=== PATIENT | male | born 1950 | race Caucasian/White ===

== ENCOUNTER 2017-03-21 12:14 | Day surgery (SDC) | payer MEDICARE, OTHER ==
--- NOTE | 2017-03-21 08:21 | SURGERY HX AND PHYSICAL(T) ---
Surgical History & Physical - PMH/PSH/Social Hx Does the pt have a hx of MRSA?: No Cardiovascular: Hypertension Eyes Ears Nose Throat (EENT): Tonsil/Adenoidectomy Smoking Status: Never smoker Does the pt drink ETOH?: Yes Frequency: Occasional Does the pt have substance abuse?: No - Home Meds and Allergies Home Medications: Aspirin [Aspir 81] 81 mg PO 06/05/13 Cyclobenzaprine [Flexeril] 10 mg PO TID PRN 06/05/13 Felodipine [Felodipine ER] 5 mg PO 06/05/13 Losartan [Cozaar] 50 mg PO DAILY 06/05/13 Metoprolol Tartrate 100 mg PO 06/05/13 Simvastatin 20 mg PO 06/05/13 Allergies/Adverse Reactions: Allergies Allergy/AdvReac Type Severity Reaction Status Date / Time No Known Drug Allergies Allergy Verified 06/05/13 14:06 - Patient Review Patient Review: Problems were reviewed with the patient during this visit. Medications were reviewed with the patient during this visit. Allergies were reviewed this patient during this visit. Pertinent Tests Reviewed: All pertitent test for this patient were reviewed. - Assessment & Plan Assessment and Plan: Dr. Ravi Howell initially sent this pleasant 66-year-old male to my office on consultation for the aforementioned reasons back on January 05, 2017. Because of the patient's schedule he was scheduled for today and since more than 30 days pounds from the time of the initial history and physical this repeat/update history and physical is mandated. I went over the narrative below with the patient verbatim and there are no substantive changes. He describes his bowel movements as regular and normal. He denies nausea, vomiting, constipation, diarrhea, melena, hematochezia, hematemesis, abdominal pain, unexplained weight loss, or change in the color, character or caliber of his stool. The patient denies any previous colon evaluation including barium enema, sigmoidoscopy or colonoscopy. The patient states that he saw Dr. Ramila Hernandez approximately 5 years ago for colonoscopy but due to his busy and hectic schedule never followed through with having the procedure. 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 It is likely that the first time our schedules will allow for this colonoscopy to occur will be in March. He is flying back to [place] to take care of his aunt I believe and within the month he will be flying to [place] as well as [place]. Allergies: None. Current Meds: SUPREP BOWEL PREP SOLN (NA SULFATE-K SULFATE-MG SULF) Take as directed SIMVASTATIN 20 MG TABS (SIMVASTATIN) Take one tablet by mouth daily at bedtime ASPIRIN EC 81 MG TBEC (ASPIRIN) 1 po daily COZAAR 100 MG TABS (LOSARTAN POTASSIUM) Take one tablet by mouth daily FELODIPINE 5 MG TB24 (FELODIPINE) Take one tablet by mouth every day TOPROL XL 100 MG TB24 (METOPROLOL SUCCINATE) Take one tablet by mouth every day Past Medical History: HYPERTENSION, BENIGN ESSENTIAL (ICD-401.1) HYPERLIPIDEMIA (ICD-272.4) HYPERGLYCEMIA (ICD-790.6) Family History Summary: Father () - Has a father - Entered On: 03/18/2016 General Comments - FH: Father of presumed metastatic pancreatic cancer in his late 50s Mother alive in her 90s in 2015 Risk Factors: Smoked Tobacco Use: Never smoker Passive smoke exposure: no Drug use: no Alcohol use: yes Type: 1-2 x a week Exercise: no Seatbelt use: 100 % Sun Exposure: occasionally Review of Systems CONSTITUTIONAL: No weight loss, fever, chills, weakness or fatigue. HEENT: Eyes: No visual loss, blurred vision, double vision or yellow sclerae. Ears, Nose, Throat: No hearing loss, sneezing, congestion, runny nose or sore throat. SKIN: No rash or itching. CARDIOVASCULAR: No chest pain, chest pressure or chest discomfort. No palpitations or edema. RESPIRATORY: No shortness of breath, cough or sputum. GASTROINTESTINAL: No anorexia, nausea, vomiting or diarrhea. No abdominal pain or blood. GENITOURINARY: No dysuria. No impotence. NEUROLOGICAL: No headache, dizziness, syncope, paralysis, ataxia, numbness or tingling in the extremities. No change in bowel or bladder control. MUSCULOSKELETAL: No muscle, back pain, joint pain or stiffness. HEMATOLOGIC: No anemia, bleeding or bruising. LYMPHATICS: No enlarged nodes. No history of splenectomy. PSYCHIATRIC: No history of depression or anxiety. ENDOCRINOLOGIC: No reports of sweating, cold or heat intolerance. No polyuria or polydipsia. ALLERGIES: No history of asthma, hives, eczema or rhinitis. Physical Exam General: 66-year old male, appears slightly younger than stated age, well developed, well nourished Vitals: Refer to nurses notes. HEENT: Normocephalic, atraumatic, extraocular movement intact, mucous membranes pink and moist, sclera anicteric and not injected, oro hair, lids bilaterally slightly droopy Neck: Supple without pain on palpation, mass or bruit Cardiac: Regular rate and rhythm without rub, gallop, or murmur Chest: Clear to auscultation bilaterally Abdomen: Soft, nontender, normoactive bowel sounds, no hepatomegaly, no splenomegaly Genitourinary: Deferred Rectal: Deferred until colonoscopy Extremities: No gross neurovascular problem, no clubbing, cyanosis or edema Gait: Not evaluated. Psychiatric: Alert and oriented to person place and time, asks and answers questions appropriately, mood and affect appropriate Impression & Recommendations: Screening colonoscopy with possible biopsies and/or polypectomies. Indications , procedure, alternatives (such as barium enema, Cologuard and even no procedure at all) and risks including but not limited to perforation requiring operative repair, bleeding with its risks, and were fully explained to him. In the office, I zach diagrams explaining the colonic anatomy and the proposed procedure and handed it to him. In the office, conscious sedation was discussed at length with him as were its risks including but not limited to loss of airway, aspiration, respiratory depression, and not enough relief of pain and anxiety and he indicated that he wished to have conscious sedation for his procedure. In the office, I explained that MAC anesthesia is associated with a higher incidence of colon perforation. Review of his history does not reveal any significant systemic disease that would contraindicate use of conscious sedation or MAC anesthesia. All questions were fully answered. Verbal and written consent was obtained. The patient in preparation for his colonoscopy has been n.p.o. and his colon has been mechanically prepped. 20 minutes of cauy-ky-wheh time spent with the patient the majority of which was spent in discussion and in the generation of this document
[2017-03-21] MEDS ORDERED: LACTATED RINGERS 1,000 ML IV ONE (12:41)
[2017-03-21] MEDS ORDERED: fentaNYL 100 MCG/2 ML VIAL IVP ONE (13:16)
[2017-03-21] MEDS ORDERED: MIDAZOLAM 2 MG/2 ML VIAL IVP ONE (13:16)
[2017-03-21 14:13] VITALS: BP 130/59
== END 2017-03-21 12:15 | disposition home or self-care (01) ==
LOC: SDS 12:14
PROVIDERS: ATTEND Surgery
PROC: 0DJD8ZZ Inspection of Lower Intestinal Tract, Via Natural or Artificial Opening Endoscopic (ICD-10-PCS; principal; 2017-03-21 13:15)
DX: Z12.11 Encounter for screening for malignant neoplasm of colon (principal); K57.30 Diverticulosis of large intestine without perforation or abscess without bleeding; K64.8 Other hemorrhoids; I10 Essential (primary) hypertension; E78.5 Hyperlipidemia, unspecified; Z79.82 Long term (current) use of aspirin; Z80.8 Family history of malignant neoplasm of other organs or systems
CPT/HCPCS: G0121; J7120

== ENCOUNTER 2018-01-24 10:25 | Day surgery (SDC) | payer MEDICARE, OTHER ==
[~2018-01-24 10:25] MED LIST: ceFAZolin 2 GM/50 ML 2 GM/50 ML BAG IV ONE
[2018-01-24] MEDS ORDERED: BUPIVACAINE 0.5% PF 30 ML VIAL ONE (10:51)
[2018-01-24] MEDS ORDERED: LACTATED RINGERS 1,000 ML IV ONE ×2 (10:56→12:50)
[2018-01-24] MEDS ORDERED: BUPIVACAINE 0.5% PF 30 ML VIAL SUBQ ONE (12:21)
[2018-01-24] MEDS ORDERED: KETOROLAC 30 MG/ML VIAL IVP ONE (12:28)
[2018-01-24] MEDS ORDERED: ACETAMINOPHEN 1,000 MG/100 ML 100 ML IV ONE (12:28)
[2018-01-24] MEDS ORDERED: PROPOFOL 200 MG/20 ML VIAL IVP ONE (12:28)
[2018-01-24] MEDS ORDERED: ePHEDrine 50 MG/ML VIAL IVP ONE (12:28)
[2018-01-24] MEDS ORDERED: DEXAMETHASONE 4 MG/ML VIAL IVP ONE (12:28)
[2018-01-24] MEDS ORDERED: MIDAZOLAM 2 MG/2 ML VIAL IVP ONE (12:28)
[2018-01-24] MEDS ORDERED: ONDANSETRON 4 MG/2 ML VIAL IVP ONE (12:28)
[2018-01-24] MEDS ORDERED: GLYCOPYRROLATE 1 MG/5 ML VIAL IVP ONE (12:28)
[2018-01-24] MEDS ORDERED: LIDOCAINE-MPF 2% 5 ML VIAL IM ONE (12:28)
--- NOTE | 2018-01-24 13:45 | OPERATIVE REPORT ---
Operative Report - General Procedure Date: 01/24/18 Planned Procedure: Large RIGHT inguinal herniorrhaphy Pre-Op Diagnosis: Large RIGHT inguinal hernia Procedure Performed: Large direct and indirect RIGHT inguinal herniorrhaphy and excision cord lipoma x2 Post Op Diagnosis: Large direct and indirect RIGHT inguinal hernia and cord lipoma x2 - Procedure Note Primary Surgeon: Adams Aranda MD Anesthesia Provider: Siva Jimenez CRNA Anesthesia Technique: General ET tube, Local (30 mL 1/2% marcaine) IV Fluids (mL): 1,000 Estimated Blood Loss (mL): 10 Complications: None. - Other Other Information/Narrative: OPERATIVE DESCRIPTION/REPORT: After verbal and written informed consent was obtained detailing the risks of infection, bleeding requiring transfusion with its risks, nerve injury, and , and after I met with the patient confirming the surgery and the site of the surgery and after initialing the site of the surgery with a surgical marker , the patient was brought to the operative suite and placed supine on the operating table. Great care was taken to avoid pressure points to prevent pressure necrosis or nerve injury. Monitoring devices were applied along with TEDs and pneumatic compressive stockings (to prevent DVT). The patient received preoperative antibiotics for surgical prophylaxis. [caddy/ anesthesiologist] sedated and anesthetized the patient for the entire procedure. The patient was prepped and draped in the usual sterile manner. With the patient draped my initials were clearly visible. A "time in" then confirmed that the patient was identified with 3 identifiers (name, date and medical record number), the history and physical was in the chart, the signed consent confirming the procedure was in the chart, the patient was in the correct position, the aforementioned prophylactic measures were in place or given, we had the correct personnel and equipment to complete the procedure and that anesthesia, surgery and nursing were given an opportunity to express any concerns. With the agreement of everyone in the room, we proceeded with the operation. A standard inguinal incision was made and dissection was carried down to the external oblique aponeurosis using a combination of Metzenbaum scissors and Bovie electrocautery. The external oblique aponeurosis was cleared of overlying adherent tissue, and the external ring was delineated. The external oblique was the incised with a scalpel and this incision was carried out to the external ring using Metzenbaum scissors. Having exposed the inguinal canal, the cord structures were from the canal using blunt dissection, and a Star drain was placed around the cord structures at the level of the pubic tubercle. This Arlen drain was then used to retract the cord structures as needed. Adherent cremasteric muscle was dissected free from the cord using Bovie electrocautery. Dissection along the cord structures found a lipoma that was dissected back to the internal ring, ligated with a 3-0 Vicryl, transected, the stump cauterized and allowed to retract back into the abdomen. The cord was then further explored using a combination of sharp and blunt dissection, and the sac was found anteromedially to the cord structures. The sac was dissected free from the cord structures using a combination of blunt dissection and Bovie electrocautery. Once preperitoneal fat was encountered, the dissection stopped and the sac was high ligated with a 2-0 Vicryl, transected, the stump cauterized and allowed to retract back into the abdominal cavity and an extra- large Bard Perfix plug (Ref# [id number], Lot# [id number], use date 2022-09-18) inserted into the internal ring. The plug was secured to the internal ring by interrupted 2-0 PDS sutures. The Bard Perfix enlay patch was then placed on the floor of the inguinal canal and secured in place using interrupted 0 PDS sutures to the conjoined tendon superiorly, pubic tubercle medially, and shelving edge inferiorly thus repairing the hernia was found coming from the floor of the inguinal canal medial to the inferior epigastric vessels. By reinforcing the floor with the enlay patch, a new internal ring was thus formed. The Star drain was removed. The wound was then irrigated using sterile saline, and hemostasis was obtained using Bovie electrocautery. The incision in the external oblique was approximated using a 3-0 Vicryl in a running fashion , thus reforming the external ring. The fascia and skin was then injected with the 1/2% marcaine for terminal supervisor pain control. The skin incision was approximated with 4-0 Monocryl in a subcuticular fashion. The skin was prepped with benzoin and steristrips were applied. At this point a time out was performed that confirmed that all the counts were correct, the procedure that was performed, the blood loss, the IV fluids administered, and the patients condition. A dressing was then applied. Gentle downward traction ensured that the testes were well seated in the scrotum. Having tolerated the procedure well , the patient was taken to short stay in good and stable condition. The Star drain was removed. The wound was then irrigated using sterile saline, and hemostasis was obtained using Bovie electrocautery. The incision in the external oblique was approximated using a 2-0 Vicryl in a running fashion , thus reforming the external ring. The skin incision was approximated with 4- 0 Monocryl in a subcuticular fashion. The skin was prepped with benzoin and steristrips were applied. At this point a time out was performed that confirmed that all the counts were correct, the procedure that was performed, the blood loss, the IV fluids administered, and the patients condition. A dressing was then applied. Gentle downward traction ensured that the testes were well seated in the scrotum. Having tolerated the procedure well, the patient was taken to recovery room in good and stable condition.
[2018-01-24] MEDS ORDERED: oxyCOD/ACETAMIN 5 MG/325 MG TABLET PO ONE (14:20)
[2018-01-24 14:54] VITALS: BP 133/62
== END 2018-01-24 10:26 | disposition home or self-care (01) ==
LOC: SDS 10:25
PROVIDERS: ATTEND Surgery
PROC: 0VBF0ZZ Excision of Right Spermatic Cord, Open Approach (ICD-10-PCS; 2018-01-24)
PROC: 0YU50JZ Supplement Right Inguinal Region with Synthetic Substitute, Open Approach (ICD-10-PCS; principal; 2018-01-24 11:15)
DX: K40.90 Unilateral inguinal hernia, without obstruction or gangrene, not specified as recurrent (principal); I10 Essential (primary) hypertension; E78.5 Hyperlipidemia, unspecified; D17.6 Benign lipomatous neoplasm of spermatic cord
CPT/HCPCS: 49505; A9270; C1781; J0131; J0690; J7120; 88304